=== PATIENT | female | born 1970 | race Caucasian/White ===

== ENCOUNTER 2018-04-22 02:34 | Emergency (ER) | payer SELFPAY ==
[~2018-04-22] VITALS: Ht 157.5 cm; Wt 59.0 kg
[~2018-04-22 02:34] MED LIST: ATIVAN1 MG ORAL; DIPHENHYDRAMINE25 M1 ORAL; EPIPEN 2-P0.3 MG/0.3 IM; IBUPROFEN600 MG ORAL; IBUPROFEN600 MG PO; NORCO 5-325 TA1 EACH ORAL; PEPCID20 MG ORAL; PREDNISONE50 MG ORAL; XANAX0.25 MG ORAL
[2018-04-22 02:41] VITALS: BP 102/60
[2018-04-22] MEDS ORDERED: Methocarbamol 500mg tab ORAL ONE (03:00)
[2018-04-22] MEDS ORDERED: traMADol 50mg tab ORAL ONE (03:00)
[2018-04-22 03:18] LABS: APPEARANCE,URINE CLEAR; BILIRUBIN, URINE NEGATIVE (NEGATIVE); GLUCOSE, URINE (UA) NEGATIVE (NEGATIVE); KETONES,URINE NEGATIVE (NEGATIVE); LEUKOCYTE ESTERASE ,URINE 1+ (NEGATIVE); NITRITE,URINE NEGATIVE (NEGATIVE); PH,URINE 5 (4.5-8.0); PROTEIN,URINE NEGATIVE (NEGATIVE); UROBILINOGEN,URINE NORMAL MG/DL (0.0-1.0)
[2018-04-22 03:24] LABS: COLOR,URINE YELLOW
[2018-04-22 03:44] LABS: BASOPHILS % (AUTO) 1.2 % (0.0-2.0); EOSINOPHILS % (AUTO) 1.6 % (0.0-3.0); HEMATOCRIT 41.4 % (37.0-47.0); HEMOGLOBIN 14.3 G/DL (12.0-16.0); LYMPHOCYTES % (AUTO) 45.7 % (20.0-45.0); MEAN CORPUSCULAR VOLUME 92 FL (80-99); MONOCYTES % (AUTO) 6.6 % (1.0-10.0); NEUTROPHILS % (AUTO) 44.9 % (45.0-75.0); PLATELET COUNT 169 K/UL (150-450); RED BLOOD COUNT 4.53 M/UL (4.20-5.40); RED CELL DISTRIBUTION WIDTH 11.7 % (11.6-14.8); WHITE BLOOD COUNT 8.9 K/UL (4.8-10.8)
[2018-04-22 03:59] LABS: ANION GAP 5 mmol/L (5-15); BLOOD UREA NITROGEN 23 mg/dL (7-18); CALCIUM 8.5 MG/DL (8.5-10.1); CARBON DIOXIDE 27 MMOL/L (21-32); CHLORIDE 104 MMOL/L (98-107); CREATININE 0.8 MG/DL (0.55-1.30); POTASSIUM 3.9 MMOL/L (3.5-5.1); SODIUM 136 MMOL/L (136-145)
[2018-04-22 04:03] LABS: ALANINE AMINOTRANSFERASE 18 U/L (12-78); ALBUMIN 3.7 G/DL (3.4-5.0); ALBUMIN/GLOBULIN RATIO 1.1 (1.0-2.7); ALKALINE PHOSPHATASE 49 U/L (46-116); ASPARTATE AMINO TRANSFERASE 11 U/L (15-37); BILIRUBIN,TOTAL 0.2 MG/DL (0.2-1.0)
--- NOTE | 2018-04-22 04:30 | Emergency Room Report ---
History of Present Illness General Chief Complaint: Back Pain-No Injury Source: Patient Present Illness HPI The patient presents with R upper flank pain. This began yesterday. The pain is 8/10 after taking tylenol 500 mg 2 hours ago. It is constant and somewhat worsened with movement. She denies fever, dysuria, NVD, dyspnea. She had this pain before and was told it may have been caused by muscle spasm. She has chronic back problems with sciatica. This is different pain. She had an epidural yesterday. The lower back is not painful. She denies saddle numbness, incontinence, blood thinners, new numbness or weakness. Some "smoker's cough". No chest pain. No h/o stones. H/O HTN. No headache. Unable to sleep due to pain. Allergies: Coded Allergies: AMOXICILLIN (Unverified Allergy, Severe, 09/29/15) DOXYCYCLINE (Unverified Allergy, Severe, 09/29/15) Patient History Past Medical History: see triage record Social History: Reports: smoking Social History Narrative with family Now: No Reviewed Nursing Documentation: PMH: Agreed; PSxH: Agreed Nursing Documentation-PMH Hx Hypertension: Yes History Of Psychiatric Problem: Yes - depression Review of Systems All Other Systems: negative except mentioned in HPI Physical Exam Vital Signs Date Time Temp Pulse Resp B/P (MAP) Pulse Ox O2 Delivery O2 Flow Rate FiO2 04/22/18 02:38 97.6 78 16 102/60 98 Room Air 97.5 Sp02 EP Interpretation: reviewed, normal General Appearance: well appearing, no apparent distress, GCS 15 Head: normocephalic Eyes: bilateral eye normal inspection, bilateral eye PERRL ENT: moist mucus membranes Neck: supple Respiratory: chest non-tender, lungs clear, normal breath sounds Cardiovascular #1: regular rate, rhythm Cardiovascular #2: 2+ radial (R) Gastrointestinal: normal inspection, normal bowel sounds, non tender, no mass, non-distended Genitourinary: CVA tenderness (R) - upper back Musculoskeletal: back normal - no bone tenderness and FROM with neg SLR, gait/ station normal, normal range of motion, no calf tenderness Neurologic: alert, oriented x3, grossly normal Psychiatric: mood/affect normal Skin: normal inspection, warm/dry Medical Decision Making Diagnostic Impression: Primary Impression: Flank pain Additional Impression: Muscle spasm ER Course Patient presents with R flank pain. DDx: pyelo, UTI, muscle strain/spasm, gall bladder pain, pneumonia, post epidural infection. Evaluation with labs. Treatment with tramadol and robaxin. Depending on labs she might need imaging studies, however, if negative labs, imaging not indicated. (She requested ultrasound.) UA clear. Labs unremarkable. Pain resolved with treatment. Patient stable for outpatient observation and treatment. Laboratory Tests Test 04/22/18 02:40 04/22/18 03:20 04/22/18 03:35 Urine Color Yellow Urine Appearance Clear Urine pH 5 (4.5-8.0) Urine Specific [place] 1.025 (1.005-1.035) Urine Protein Negative (NEGATIVE) Urine Glucose (UA) Negative (NEGATIVE) Urine Ketones Negative (NEGATIVE) Urine Occult Blood Negative (NEGATIVE) Urine Nitrite Negative (NEGATIVE) Urine Bilirubin Negative (NEGATIVE) Urine Urobilinogen Normal MG/DL (0.0-1.0) Urine Leukocyte Esterase 1+ (NEGATIVE) H Urine RBC 0-2 /HPF (0 - 2) Urine WBC 0-2 /HPF (0 - 2) Urine Squamous Epithelial Cells Few /LPF (NONE/OCC) Urine Bacteria None /HPF (NONE) Urine HCG, Qualitative Negative (NEGATIVE) Urine Opiates Screen Negative (NEGATIVE) Urine Barbiturates Screen Negative (NEGATIVE) Phencyclidine (PCP) Screen Negative (NEGATIVE) Urine Amphetamines Screen Negative (NEGATIVE) Urine Benzodiazepines Screen Negative (NEGATIVE) Urine Cocaine Screen Negative (NEGATIVE) Urine Marijuana (THC) Screen Negative (NEGATIVE) White Blood Count 8.9 K/UL (4.8-10.8) Red Blood Count 4.53 M/UL (4.20-5.40) Hemoglobin 14.3 G/DL (12.0-16.0) Hematocrit 41.4 % (37.0-47.0) Mean Corpuscular Volume 92 FL (80-99) Mean Corpuscular Hemoglobin 31.7 PG (27.0-31.0) H Mean Corpuscular Hemoglobin Concent 34.6 G/DL (32.0-36.0) Red Cell Distribution Width 11.7 % (11.6-14.8) Platelet Count 169 K/UL (150-450) Mean Platelet Volume 11.4 FL (6.5-10.1) H Neutrophils (%) (Auto) 44.9 % (45.0-75.0) L Lymphocytes (%) (Auto) 45.7 % (20.0-45.0) H Monocytes (%) (Auto) 6.6 % (1.0-10.0) Eosinophils (%) (Auto) 1.6 % (0.0-3.0) Basophils (%) (Auto) 1.2 % (0.0-2.0) Sodium Level 136 MMOL/L (136-145) Potassium Level 3.9 MMOL/L (3.5-5.1) Chloride Level 104 MMOL/L (98-107) Carbon Dioxide Level 27 MMOL/L (21-32) Anion Gap 5 mmol/L (5-15) Blood Urea Nitrogen 23 mg/dL (7-18) H Creatinine 0.8 MG/DL (0.55-1.30) Estimate Glomerular Filtration Rate > 60 mL/min (>60) Glucose Level 105 MG/DL (74-106) Calcium Level 8.5 MG/DL (8.5-10.1) Total Bilirubin 0.2 MG/DL (0.2-1.0) Aspartate Amino Transferase (AST) 11 U/L (15-37) L Alanine Aminotransferase (ALT) 18 U/L (12-78) Alkaline Phosphatase 49 U/L (46-116) Total Protein 7.0 G/DL (6.4-8.2) Albumin 3.7 G/DL (3.4-5.0) Globulin 3.3 g/dL Albumin/Globulin Ratio 1.1 (1.0-2.7) Lipase 153 U/L (73-393) Last Vital Signs Date Time Temp Pulse Resp B/P (MAP) Pulse Ox O2 Delivery O2 Flow Rate FiO2 04/22/18 04:47 97.2 62 12 104/58 99 Room Air 97.2 Status: improved Disposition: HOME, SELF-CARE Condition: Improved Scripts Tramadol Hcl* (ULTRAM*) 50 Mg Tablet 50 MG ORAL Q6H PRN for For Pain, #10 TAB 0 Refills Prov: Arturo Epperson M.D. 04/22/18 Methocarbamol* (ROBAXIN*) 500 Mg Tablet 500 MG PO TID, #10 TAB 0 Refills Prov: Arturo Epperson M.D. 04/22/18 Ibuprofen* (MOTRIN*) 600 Mg Tablet 600 MG ORAL Q6H PRN for For Pain, #20 TAB Prov: Arturo Epperson M.D. 04/22/18 Referrals: NON PHYSICIAN (PCP) Arturo Epperson M.D. Apr 22, 2018 04:30
[2018-04-22] MEDS ORDERED: ROBAXIN500 MG PO (04:33)
[2018-04-22] MEDS ORDERED: TRAMADOL HCL50 MG ORAL (04:33)
[2018-04-22] MEDS ORDERED: IBUPROFEN600 MG ORAL (04:33)
[2018-04-22 04:41] VITALS: BP 104/58
[2018-04-22 04:47] VITALS: BP 104/58
== END 2018-04-22 04:47 | disposition home or self-care (01) ==
LOC: EMR 02:50
DX: R10.9 Unspecified abdominal pain (principal); M62.838 Other muscle spasm; I10 Essential (primary) hypertension; F32.9 Major depressive disorder, single episode, unspecified; Z88.0 Allergy status to penicillin
CPT/HCPCS: 36415; 80053; 80307; 81003; 81025; 83690; 85025; 99284

== ENCOUNTER 2018-08-07 15:44 | Emergency (ER) | payer SELFPAY ==
[~2018-08-07] VITALS: Ht 162.6 cm; Wt 58.1 kg
[~2018-08-07 15:44] MED LIST changes: +ROBAXIN500 MG PO; +TRAMADOL HCL50 MG ORAL
[2018-08-07 15:55] VITALS: BP 99/65
--- NOTE | 2018-08-07 16:29 | Emergency Room Report ---
History of Present Illness General Chief Complaint: Pain Source: Patient Present Illness HPI Patient had fillers injected by her eyes and in her upper lip yesterday by her plastic surgeon. She's had swelling. She placed ice on one time yesterday. She's not taking medication for pain. She denies any fevers or chills. There' s no change in vision. Still with swelling under eyes. Pain rated 6/10, pressure/aching, constant. No headache. Someone told her she should use arnica. No other somatic complaints. LNMP 2 days ago. H/O HTN. Tetanus unknown. Allergies: Coded Allergies: AMOXICILLIN (Unverified Allergy, Severe, 09/29/15) DOXYCYCLINE (Unverified Allergy, Severe, 09/29/15) Patient History Past Medical History: see triage record Past Surgical History: other - plastic surgery Social History: Reports: smoking Social History Narrative with her daughter Last Menstrual Period: 2 days ago Reviewed Nursing Documentation: PMH: Agreed; PSxH: Agreed Nursing Documentation-PMH Past Medical History: No History, Except For Hx Hypertension: Yes History Of Psychiatric Problem: Yes - depression Review of Systems Constitutional: Denies: fever Eye: Reports: see HPI ENT: Denies: nose congestion, throat pain, throat swelling, mouth pain, nasal discharge Gastrointestinal: Denies: nausea Genitourinary: Reports: see HPI Musculoskeletal: Denies: joint pain Skin: Reports: see HPI Neurological: Reports: see HPI Hematologic/Lymphatic: Denies: blood clots, easy bleeding, easy bruising Physical Exam Vital Signs Date Time Temp Pulse Resp B/P (MAP) Pulse Ox O2 Delivery O2 Flow Rate FiO2 08/07/18 15:54 98.0 73 14 99/65 96 Room Air 98.1 Sp02 EP Interpretation: reviewed, normal General Appearance: well appearing, no apparent distress, GCS 15 Head: normocephalic, atraumatic Eyes: bilateral eye PERRL, bilateral eye EOMI, bilateral eye other - swelling under both eyes ENT: hearing grossly normal, normal voice Neck: full range of motion, supple Respiratory: no respiratory distress, speaking full sentences Cardiovascular #1: regular rate, rhythm Gastrointestinal: normal inspection Musculoskeletal: gait/station normal Neurologic: alert, oriented x3, normal gait, grossly normal Psychiatric: mood/affect normal Skin: other - no erythema at sites of injection Medical Decision Making Diagnostic Impression: Primary Impression: Facial swelling ER Course Patient presents with periorbital swelling post filler injections yesterday. DDx; cellulitis, local reaction, allergic reaction. Skin not erythematous and no itching. No evidence of infection at this time. Vision not affected. Antibiotics not indicated. Focus on analgesia and local care. Tetanus not indicated as office procedure. Discussed treatment plan with patient. Patient stable for outpatient observation and treatment. Last Vital Signs Date Time Temp Pulse Resp B/P (MAP) Pulse Ox O2 Delivery O2 Flow Rate FiO2 08/07/18 16:55 98.1 73 14 99/65 96 Room Air 98.1 Status: improved Disposition: HOME, SELF-CARE Condition: Improved Scripts Tramadol Hcl* (ULTRAM*) 50 Mg Tablet 50 MG ORAL Q6H PRN for For Pain, #6 TAB 0 Refills Prov: Arturo Epperson M.D. 08/07/18 Ibuprofen* (MOTRIN*) 600 Mg Tablet 600 MG ORAL Q6H PRN for For Pain, #12 TAB Prov: Arturo Epperson M.D. 08/07/18 Arturo Epperson M.D. Aug 07, 2018 16:28
[2018-08-07] MEDS ORDERED: TRAMADOL HCL50 MG ORAL (16:31)
[2018-08-07] MEDS ORDERED: IBUPROFEN600 MG ORAL (16:31)
[2018-08-07 16:55] VITALS: BP 99/65
== END 2018-08-07 16:55 | disposition home or self-care (01) ==
LOC: EMR 16:20
DX: R22.0 Localized swelling, mass and lump, head (principal)
CPT/HCPCS: 99283

== ENCOUNTER 2018-10-16 22:13 | Emergency (ER) | payer MEDICAID ==
[~2018-10-16] VITALS: Ht 162.6 cm; Wt 63.5 kg
[2018-10-16] MEDS ORDERED: CLONAZEPAM1 MG PO (22:27)
[2018-10-16 22:32] VITALS: BP 105/69
[2018-10-16] MEDS ORDERED: Morphine Sulfate 4mg/ml Inj (IV/IM USE ONLY) IVP ONE (23:00)
[2018-10-16 23:12] LABS: APPEARANCE,URINE CLEAR; BILIRUBIN, URINE NEGATIVE (NEGATIVE); COLOR,URINE PALE YELLOW; GLUCOSE, URINE (UA) NEGATIVE (NEGATIVE); KETONES,URINE NEGATIVE (NEGATIVE); LEUKOCYTE ESTERASE ,URINE 1+ (NEGATIVE); NITRITE,URINE NEGATIVE (NEGATIVE); PH,URINE 5 (4.5-8.0); PROTEIN,URINE 2+ (NEGATIVE); UROBILINOGEN,URINE NORMAL MG/DL (0.0-1.0)
[2018-10-16 23:13] LABS: BASOPHILS % (AUTO) 1.7 % (0.0-2.0); EOSINOPHILS % (AUTO) 1.6 % (0.0-3.0); HEMATOCRIT 38.7 % (37.0-47.0); HEMOGLOBIN 13.2 G/DL (12.0-16.0); LYMPHOCYTES % (AUTO) 47.3 % (20.0-45.0); MEAN CORPUSCULAR VOLUME 91 FL (80-99); MONOCYTES % (AUTO) 6.2 % (1.0-10.0); NEUTROPHILS % (AUTO) 43.2 % (45.0-75.0); PLATELET COUNT 231 K/UL (150-450); RED BLOOD COUNT 4.24 M/UL (4.20-5.40); RED CELL DISTRIBUTION WIDTH 11.8 % (11.6-14.8); WHITE BLOOD COUNT 8.1 K/UL (4.8-10.8)
[2018-10-16 23:21] LABS: INR 0.9 (0.9-1.1)
[2018-10-16 23:22] LABS: ANION GAP 9 mmol/L (5-15); BLOOD UREA NITROGEN 10 mg/dL (7-18); CALCIUM 8.6 MG/DL (8.5-10.1); CARBON DIOXIDE 25 MMOL/L (21-32); CHLORIDE 105 MMOL/L (98-107); CREATININE 0.9 MG/DL (0.55-1.30); POTASSIUM 4.7 MMOL/L (3.5-5.1); SODIUM 139 MMOL/L (136-145)
[2018-10-16 23:26] LABS: ALANINE AMINOTRANSFERASE 18 U/L (12-78); ALBUMIN 3.6 G/DL (3.4-5.0); ALBUMIN/GLOBULIN RATIO 0.9 (1.0-2.7); ALKALINE PHOSPHATASE 60 U/L (46-116); ASPARTATE AMINO TRANSFERASE 38 U/L (15-37); BILIRUBIN,TOTAL 0.3 MG/DL (0.2-1.0)
[2018-10-16 23:57] VITALS: BP 105/69
[2018-10-17] MEDS ORDERED: ACETAMINOPHEN-1 EAC1 ORAL (00:06)
--- NOTE | 2018-10-17 04:51 | Emergency Room Report ---
History of Present Illness General Chief Complaint: Vaginal Source: Patient Present Illness HPI 48-year-old female presents ED for evaluation. Complaining of lower abdominal pain with vaginal bleeding. Bleeding started with her period, but has persisted for 16 days now. Heavier than usual. Feels lightheaded and weak. Pain is cramping, 7 out of 10, nonradiating. Is not sure if she is . No other aggravating relieving factors. Denies any other associated symptoms Allergies: Coded Allergies: AMOXICILLIN (Unverified Allergy, Severe, 09/29/15) DOXYCYCLINE (Unverified Allergy, Severe, 09/29/15) Patient History Past Medical History: HTN Past Surgical History: none Pertinent Family History: none Social History: Denies: smoking, alcohol use, drug use Last Menstrual Period: last 16 days Now: No Immunizations: UTD Reviewed Nursing Documentation: PMH: Agreed; PSxH: Agreed Nursing Documentation-PMH Past Medical History: No Stated History Hx Hypertension: Yes Review of Systems All Other Systems: negative except mentioned in HPI Physical Exam Vital Signs Date Time Temp Pulse Resp B/P (MAP) Pulse Ox O2 Delivery O2 Flow Rate FiO2 10/16/18 22:20 97.7 66 18 105/69 99 Room Air Sp02 EP Interpretation: reviewed, normal General Appearance: no apparent distress, alert, GCS 15, non-toxic Head: normocephalic, atraumatic Eyes: bilateral eye normal inspection, bilateral eye PERRL ENT: hearing grossly normal, normal pharynx, no angioedema, normal voice Neck: full range of motion, supple/symm/no masses Respiratory: chest non-tender, lungs clear, normal breath sounds, speaking full sentences Cardiovascular #1: regular rate, rhythm, no edema Cardiovascular #2: 2+ carotid (R), 2+ carotid (L), 2+ radial (R), 2+ radial (L) , 2+ dorsalis pedis (R), 2+ dorsalis pedis (L) Gastrointestinal: normal bowel sounds, non tender, soft, non-distended, no guarding, no rebound Rectal: deferred Genitourinary: normal inspection, no CVA tenderness Musculoskeletal: back normal, gait/station normal, normal range of motion, non- tender Neurologic: alert, oriented x3, responsive, motor strength/tone normal, sensory intact, speech normal Psychiatric: judgement/insight normal, memory normal, mood/affect normal, no suicidal/homicidal ideation Reflexes: 3+ bicep (R), 3+ bicep (L), 3+ tricep (R), 3+ tricep (L), 3+ knee (R) , 3+ knee (L) Skin: normal color, no rash, warm/dry, well hydrated Lymphatic: no adenopathy Medical Decision Making Diagnostic Impression: Primary Impression: Fibroids Qualified Codes: D25.9 - Leiomyoma of uterus, unspecified ER Course Hospital Course 48-year-old female presents to ED complaining of vaginal bleed > 2 weeks Differential diagnoses include: gastrits, gastroenterits, ectopic , ovarian torsion/cyst, UTI Clinical course Patient placed on stretcher in ED. After initial history and physical I ordered labs, IV fluids and pain meds and pelvic ultrasound. Labs-no leukocytosis, hb/hct stable, electrolytes okay, beta hCG negative, UA negative Pelvic ultrasound- fibroids Discussed findings with patient. Safe for discharge or close outpatient follow- up. Patient states she'll follow-up with her [employer] Diagnosis - fibroids Stable and discharged to home with Rx Tylenol #3. Followup with PMD/[employer]. Return to ED if symptoms recur or worsen Labs Test 10/16/18 22:50 White Blood Count 8.1 K/UL (4.8-10.8) Red Blood Count 4.24 M/UL (4.20-5.40) Hemoglobin 13.2 G/DL (12.0-16.0) Hematocrit 38.7 % (37.0-47.0) Mean Corpuscular Volume 91 FL (80-99) Mean Corpuscular Hemoglobin 31.1 PG (27.0-31.0) Mean Corpuscular Hemoglobin Concent 34.2 G/DL (32.0-36.0) Red Cell Distribution Width 11.8 % (11.6-14.8) Platelet Count 231 K/UL (150-450) Mean Platelet Volume 9.5 FL (6.5-10.1) Neutrophils (%) (Auto) 43.2 % (45.0-75.0) Lymphocytes (%) (Auto) 47.3 % (20.0-45.0) Monocytes (%) (Auto) 6.2 % (1.0-10.0) Eosinophils (%) (Auto) 1.6 % (0.0-3.0) Basophils (%) (Auto) 1.7 % (0.0-2.0) Prothrombin Time 10.0 SEC (9.30-11.50) Prothromb Time International Ratio 0.9 (0.9-1.1) Activated Partial Thromboplast Time 25 SEC (23-33) Urine Color Pale yellow Urine Appearance Clear Urine pH 5 (4.5-8.0) Urine Specific [place] 1.010 (1.005-1.035) Urine Protein 2+ (NEGATIVE) Urine Glucose (UA) Negative (NEGATIVE) Urine Ketones Negative (NEGATIVE) Urine Blood 5+ (NEGATIVE) Urine Nitrite Negative (NEGATIVE) Urine Bilirubin Negative (NEGATIVE) Urine Urobilinogen Normal MG/DL (0.0-1.0) Urine Leukocyte Esterase 1+ (NEGATIVE) Urine RBC 15-20 /HPF (0 - 2) Urine WBC 2-4 /HPF (0 - 2) Urine Squamous Epithelial Cells Few /LPF (NONE/OCC) Urine Bacteria Few /HPF (NONE) Urine HCG, Qualitative Negative (NEGATIVE) Sodium Level 139 MMOL/L (136-145) Potassium Level 4.7 MMOL/L (3.5-5.1) Chloride Level 105 MMOL/L (98-107) Carbon Dioxide Level 25 MMOL/L (21-32) Anion Gap 9 mmol/L (5-15) Blood Urea Nitrogen 10 mg/dL (7-18) Creatinine 0.9 MG/DL (0.55-1.30) Estimat Glomerular Filtration Rate > 60 mL/min (>60) Glucose Level 101 MG/DL (74-106) Calcium Level 8.6 MG/DL (8.5-10.1) Total Bilirubin 0.3 MG/DL (0.2-1.0) Aspartate Amino Transf (AST/SGOT) 38 U/L (15-37) Alanine Aminotransferase (ALT/SGPT) 18 U/L (12-78) Alkaline Phosphatase 60 U/L (46-116) Total Protein 7.5 G/DL (6.4-8.2) Albumin 3.6 G/DL (3.4-5.0) Globulin 3.9 g/dL Albumin/Globulin Ratio 0.9 (1.0-2.7) Lipase 199 U/L (73-393) Human Chorionic Gonadotropin, Quant < 1 mIU/mL (1-6) CT/MRI/US Diagnostic Results CT/MRI/US Diagnostic Results : Imaging Test Ordered: Pelvic US Impression fibroids Last Vital Signs Date Time Temp Pulse Resp B/P (MAP) Pulse Ox O2 Delivery O2 Flow Rate FiO2 10/16/18 23:57 97.7 66 18 105/69 99 Room Air Status: improved Disposition: HOME, SELF-CARE Condition: Stable Scripts Acetaminophen With Codeine (T#3) (TYLENOL #3 TAB*) Y Tab 1 TAB ORAL Q8H PRN for For Pain for 3 Days, TAB Prov: Shantanu Page MD 10/17/18 Patient Instructions: Abdominal or Pelvic Ultrasound, [id number] Shantanu Page MD Oct 17, 2018 04:51
--- NOTE | 2018-10-18 16:06 | Diagnostic Imaging Report ---
Indication: Pelvic pain, bleeding for 16 days negative test Technique: Transabdominal and transvaginal images. Doppler interrogation of the right ovary Comparison: none Findings: Only limited endovaginal scanning performed. Uterus measures 7 cm length by 5.4 cm AP. Multiple small myometrial fibroids are noted. There is a small cervical nabothian cyst. No free cul-de-sac fluid The endometrium measures 5 mm thick. The right ovary measures 2.7 cm length, demonstrates normal flow on Doppler imaging. The left ovary cannot be visualized Impression: Limited exam, as described Multiple small uterine fibroids Normal right ovary
== END 2018-10-17 00:13 | disposition home or self-care (01) ==
LOC: EMR 22:39
DX: D25.9 Leiomyoma of uterus, unspecified (principal); Z88.8 Allergy status to other drugs, medicaments and biological substances; I10 Essential (primary) hypertension
CPT/HCPCS: 36415; 76830; 76856; 80053; 81003; 81025; 83690; 84702; 85025; 85610; 85730; 86850; 86900; 86901; 96374; 99284; J2270

== ENCOUNTER 2019-02-17 22:56 | Emergency (ER) | payer MEDICAID ==
[~2019-02-17] VITALS: Ht 162.6 cm; Wt 63.5 kg
[~2019-02-17 22:56] MED LIST changes: +ACETAMINOPHEN-1 EAC1 ORAL; +CLONAZEPAM1 MG PO
[2019-02-17 23:15] VITALS: BP 119/82
--- NOTE | 2019-02-17 23:15 | NUR ---
ER Nurse Note: Pt came from home c/o generilized pain, 9/10 pain. Pt complained about head pain, back pain, and arm pain. Pt stated she has a hx of a herinated disk and gotten [place]. Pt a&ox4, VSS, no signs of distress. ERMD at bedside and ordered pain meds. [facility]
[2019-02-17] MEDS: Ketorolac 60mg Inj IM ONE (23:43)
[2019-02-17] MEDS ORDERED: TRAMADOL HCL50 MG ORAL (23:53)
--- NOTE | 2019-02-17 23:53 | Emergency Room Report ---
History of Present Illness General Chief Complaint: Dizziness Source: Patient Present Illness HPI Is a 48-year-old female with history anxiety. She presents with chief complaint of throat pain and dizziness and back pain. Onset today. She said pain was sharp. Occur few hours ago. Worse with swallowing. Does have some congestion. She said she felt dizzy like she did not pass out. Also with right ear pain. And then she developed lower back pain. Pain is 8 out of 10. No nausea no vomiting. No other complaint. Allergies: Coded Allergies: AMOXICILLIN (Unverified Allergy, Severe, 09/29/15) DOXYCYCLINE (Unverified Allergy, Severe, 09/29/15) Patient History Past Medical History: see triage record, old chart reviewed Past Surgical History: none Pertinent Family History: none Social History: Denies: smoking Last Menstrual Period: 02/07/19 Now: No Immunizations: other Reviewed Nursing Documentation: PMH: Agreed; PSxH: Agreed Nursing Documentation-PMH Past Medical History: No History, Except For Hx Hypertension: Yes Review of Systems Eye: Denies: eye pain, blurred vision ENT: Reports: throat pain; Denies: ear pain, nose congestion, throat swelling Respiratory: Reports: cough; Denies: shortness of breath Cardiovascular: Denies: chest pain, palpitations Gastrointestinal: Denies: abdominal pain, diarrhea, nausea, vomiting Musculoskeletal: Reports: back pain; Denies: joint pain Skin: Denies: rash Neurological: Denies: headache, numbness Endocrine: Denies: increased thirst, increased urine Hematologic/Lymphatic: Denies: easy bruising All Other Systems: negative except mentioned in HPI Physical Exam Vital Signs Date Time Temp Pulse Resp B/P (MAP) Pulse Ox O2 Delivery O2 Flow Rate FiO2 02/17/19 22:59 99.0 66 14 119/82 95 Room Air vitals unremarkable Sp02 EP Interpretation: reviewed, normal General Appearance: well appearing, no apparent distress, alert Head: normocephalic, atraumatic Eyes: bilateral eye PERRL, bilateral eye EOMI ENT: normal pharynx, pharyngeal erythema - Mild Neck: full range of motion, supple, no meningismus Respiratory: chest non-tender, lungs clear, normal breath sounds Cardiovascular #1: regular rate, rhythm, no murmur Gastrointestinal: normal bowel sounds, non tender, no mass, no organomegaly, no bruit, non-distended Musculoskeletal: back normal, gait/station normal, normal range of motion Psychiatric: mood/affect normal Skin: warm/dry Medical Decision Making Diagnostic Impression: Primary Impression: Pharyngitis, acute Qualified Codes: J02.9 - Acute pharyngitis, unspecified Additional Impressions: Dizziness Back pain Qualified Codes: M54.5 - Low back pain ER Course Patient presents with sore throat. I see no evidence any strep throat. No evidence of peritonsillar abscess or retropharyngeal abscess or Enrique angina. She is otherwise stable. Explained to patient that antibiotics does not treat this. We'll discharge her with symptomatic treatment. Last Vital Signs Date Time Temp Pulse Resp B/P (MAP) Pulse Ox O2 Delivery O2 Flow Rate FiO2 02/17/19 22:59 99.0 66 14 119/82 95 Room Air Status: improved Disposition: HOME, SELF-CARE Condition: Stable Scripts Tramadol Hcl* (ULTRAM*) 50 Mg Tablet 50 MG ORAL Q6H PRN for For Pain, #10 TAB 0 Refills Prov: Sarath Trujillo MD 02/17/19 Referrals: NOT CHOSEN IPA/,REFERRING (PCP) Additional Instructions: Increase fluids. Salt water gargle. What you have is a viral infection. Antibiotics does not treat this. Follow-up with your doctor in 7 days. Return if symptom worsen. Sarath Trujillo MD Feb 17, 2019 23:53
[2019-02-18 00:15] VITALS: BP 119/82
--- NOTE | 2019-02-18 00:15 | NUR ---
ER Nurse Note: Pt seen, treated, medicially cleared for discharge by ERMD. Discharge instructions and prescriptions given with repeat verbalization by pt. Instructed pt follow up with primary care physican within one week. Pt a&ox4, VSS, no signs of distress. Pt left with steady gait, no s/s of pain and nausea after meds. ID band removed. Pt left with own transportation with all belongings.
== END 2019-02-18 00:15 | disposition home or self-care (01) ==
LOC: EMR 23:22
DX: J02.9 Acute pharyngitis, unspecified (principal); R42 Dizziness and giddiness; M54.5 Low back pain; Z88.0 Allergy status to penicillin; I10 Essential (primary) hypertension
CPT/HCPCS: 96372; 99283

== ENCOUNTER → 2020-08-10 | Emergency (ER) | payer MEDICAID ==
[~2020-08-10] VITALS: Ht 162.6 cm; Wt 72.6 kg
[~2020-08-10] MED LIST changes: +DiphenhydrAMINE 50mg/ml Inj IVP ONE; +Ketorolac 30mg Inj IV ONE; +Metoclopramide 10mg/2ml Inj IVP ONE
--- NOTE | 2020-08-10 16:29 | NUR ---
ED Nurse Note: pt. unavailable upon triage
[2020-08-10 16:36] VITALS: BP 117/79
--- NOTE | 2020-08-10 16:46 | NUR ---
ED Nurse Note: Patient from [facility] and walked in due to headache, sore throat, loss of voice and weakness x 2 days. No reports of fever or vomiting. AAO x4, ambulatory with no respiratory distress.
--- NOTE | 2020-08-10 17:10 | Emergency Room Report ---
History of Present Illness General Chief Complaint: Headache Source: Patient Present Illness HPI Disclaimer: Please note that this report is being documented using DRAGON technology. This can lead to erroneous entry secondary to incorrect interpretation by the dictating instrument. HPI: 50-year-old female presents for evaluation of headache, weakness, myalgias, decreased appetite. Symptoms present approximately 4 days. Daughter and is similar symptoms at home. Over the past 4 days she has decreased appetite, epigastric discomfort, productive cough but denies fever or chills. She reports sore throat and frontal headache. Feels globally weak. Reports intermittent myalgias. Has been using high-dose Tylenol, drinking tea and using multivitamins. No recent COVID test. Did not get a flu shot this year. Pneumovax is up-to-date. Denies changes in vision, loss of consciousness, near syncope, palpitations, chest pain. PMH: Migraines PSH: Reviewed Allergies: Amoxicillin and doxycycline Social Hx: 1 pack a day smoker Allergies: Coded Allergies: AMOXICILLIN (Unverified Allergy, Severe, 09/29/15) DOXYCYCLINE (Unverified Allergy, Severe, 09/29/15) COVID-19 Screening Contact w/high risk pt: Yes Experienced COVID-19 symptoms?: Yes COVID-19 Screening: Negative COVID-19 COVID-19 Testing Source: clinic Patient History Now: No Nursing Documentation-PMH Hx Hypertension: Yes Review of Systems All Other Systems: negative except mentioned in HPI Physical Exam Vital Signs Date Time Temp Pulse Resp B/P (MAP) Pulse Ox O2 Delivery O2 Flow Rate FiO2 08/10/20 16:36 98.6 61 19 117/79 98 Room Air General: Awake and alert, no acute distress HEENT: NC/AT. EOMI. PERRLA. No ocular entrapment. No proptosis, no lid edema. No nystagmus. Cardiovascular: RRR. S1 and S2 normal. No murmur appreciated Resp: Normal work of breathing. No cough during exam. No wheezing or crackles appreciated Abdomen: Abdomen is soft, nondistended. Nontender Skin: Intact. No abrasions, laceration or rash over the exposed skin MSK: Normal tone and bulk. Moving all extremities. No obvious deformity. Neuro: Awake and alert. Mentating appropriately. Medical Decision Making Diagnostic Impression: Primary Impression: Viral syndrome Additional Impression: Headache ER Course 50-year-old female presents for evaluation of headache, decreased appetite, cough, sore throat and epigastric discomfort. Differential includes is not limited to viral syndrome, pneumonia, bronchitis, generalized headache, migraine headache, tension headache, dehydration, electrolyte abnormality, ACS to name a few. She arrives with stable vital signs, afebrile saturating 100% on room air. Labs have returned within normal limits including a negative COVID-19, negative troponin. No signs of severe dehydration. The patient was treated with IV flui ds, Reglan, Benadryl and Toradol. Headache is nearly resolved she reports feeling much better. I suspect she has a viral syndrome which should resolve in the next few days. She is overall well-appearing and stable for outpatient follow-up. Family is here to take her home. She will follow-up with her PMD and instructed to return to the emergency department new or worsening symptoms. She understands and agrees with this treatment plan. Laboratory Tests Test 08/10/20 17:30 White Blood Count 8.2 K/UL (4.8-10.8) Red Blood Count 4.48 M/UL (4.20-5.40) Hemoglobin 14.1 G/DL (12.0-16.0) Hematocrit 41.2 % (37.0-47.0) Mean Corpuscular Volume 92 FL (80-99) Mean Corpuscular Hemoglobin 31.5 PG (27.0-31.0) H Mean Corpuscular Hemoglobin Concent 34.3 G/DL (32.0-36.0) Red Cell Distribution Width 13.0 % (11.6-14.8) Platelet Count 205 K/UL (150-450) Mean Platelet Volume 11.3 FL (6.5-10.1) H Neutrophils (%) (Auto) 52.7 % (45.0-75.0) Lymphocytes (%) (Auto) 40.5 % (20.0-45.0) Monocytes (%) (Auto) 4.8 % (1.0-10.0) Eosinophils (%) (Auto) 0.6 % (0.0-3.0) Basophils (%) (Auto) 1.4 % (0.0-2.0) Sodium Level 136 MMOL/L (136-145) Potassium Level 4.0 MMOL/L (3.5-5.1) Chloride Level 103 MMOL/L (98-107) Carbon Dioxide Level 31 MMOL/L (21-32) Blood Urea Nitrogen 8 mg/dL (7-18) Creatinine 0.9 MG/DL (0.55-1.30) Estimated Glomerular Filtration Rate > 60 mL/min (>60) Glucose Level 95 MG/DL (74-106) Calcium Level 9.1 MG/DL (8.5-10.1) Total Bilirubin 0.4 MG/DL (0.2-1.0) Aspartate Amino Transferase (AST) 13 U/L (15-37) L Alanine Aminotransferase (ALT) 6 U/L (12-78) L Alkaline Phosphatase 61 U/L (46-116) Troponin I 0.000 ng/mL (0.000-0.056) Total Protein 6.9 G/DL (6.4-8.2) Albumin 4.0 G/DL (3.4-5.0) Globulin 2.9 g/dL Albumin/Globulin Ratio 1.4 (1.0-2.7) Microbiology Date/Time Source Procedure Growth Status 08/10/20 17:30 Nasopharynx SARS-CoV-2 RdRp Gene Assay - Final Complete EKG Diagnostic Results Troponin ordered: Yes When was troponin ordered?: Aug 10, 2020 EKG Time: 17:15 Rate: bradycardiac Rhythm: NSR ST Segments: no acute changes Other Impression Sinus rhythm, bradycardic rate. Normal axis, normal intervals no ST segment changes. Rhythm Strip Diag. Results Rhythm Strip Time: 17:15 EP Interpretation: yes Rate: 56 Rhythm: NSR, no PVC's, no ectopy Chest X-Ray Diagnostic Results Chest X-Ray Diagnostic Results : Chest X-Ray Ordered: Yes # of Views/Limited/Complete: 1 View Indication: Other - Weakness, cough Interpretation: no consolidation, no effusion, no pneumothorax, no acute cardiopulmonary disease Impression: No acute disease Electronically Signed by: Electronically signed by Dr. Marquez Serna Last Vital Signs Date Time Temp Pulse Resp B/P (MAP) Pulse Ox O2 Delivery O2 Flow Rate FiO2 08/10/20 16:36 98.6 61 19 117/79 (92) 98 Room Air Disposition: HOME, SELF-CARE Condition: Improved Marquez Serna MD Aug 10, 2020 17:10
--- NOTE | 2020-08-10 17:37 | Diagnostic Imaging Report ---
EXAM: XR Chest, 1 View CLINICAL HISTORY: COUGH TECHNIQUE: Frontal view of the chest. COMPARISON: No relevant prior studies available. FINDINGS: Lungs: Possible mild pulmonary vascular congestion/edema. No focal consolidation. Pleural space: Unremarkable. No pneumothorax. Heart: Unremarkable. No cardiomegaly. Mediastinum: Unremarkable. Bones/joints: Unremarkable. IMPRESSION: Possible mild pulmonary vascular congestion/edema. No focal consolidation.
[2020-08-10 18:04] LABS: ALANINE AMINOTRANSFERASE 6 U/L (12-78); ALBUMIN/GLOBULIN RATIO 1.4 (1.0-2.7); ALKALINE PHOSPHATASE 61 U/L (46-116); ASPARTATE AMINO TRANSFERASE 13 U/L (15-37); BILIRUBIN,TOTAL 0.4 MG/DL (0.2-1.0); BLOOD UREA NITROGEN 8 mg/dL (7-18); CALCIUM 9.1 MG/DL (8.5-10.1); CARBON DIOXIDE 31 MMOL/L (21-32); CHLORIDE 103 MMOL/L (98-107); CREATININE 0.9 MG/DL (0.55-1.30); SODIUM 136 MMOL/L (136-145)
[2020-08-10 18:06] LABS: BASOPHILS % (AUTO) 1.4 % (0.0-2.0); EOSINOPHILS % (AUTO) 0.6 % (0.0-3.0); HEMATOCRIT 41.2 % (37.0-47.0); HEMOGLOBIN 14.1 G/DL (12.0-16.0); LYMPHOCYTES % (AUTO) 40.5 % (20.0-45.0); MEAN CORPUSCULAR VOLUME 92 FL (80-99); MONOCYTES % (AUTO) 4.8 % (1.0-10.0); NEUTROPHILS % (AUTO) 52.7 % (45.0-75.0); PLATELET COUNT 205 K/UL (150-450); RED BLOOD COUNT 4.48 M/UL (4.20-5.40); WHITE BLOOD COUNT 8.2 K/UL (4.8-10.8)
--- NOTE | 2020-08-10 18:56 | NUR ---
HAND-OFF: Report given to Deb LAMAR.
--- NOTE | 2020-08-10 19:00 | NUR ---
ED Nurse Note: Report received from WILLADR Ge.
[2020-08-10 19:05] VITALS: BP 110/59
--- NOTE | 2020-08-10 19:05 | NUR ---
ER DISCHARGE NOTE: Patient is cleared to be discharged per ERMD, pt is aox4, on room air, with stable vital signs. pt was given dc instructions, pt was able to verbalize understanding, pt id band and iv site removed without complications. pt is able to ambulate with steady gait. pt took all belongings.
--- NOTE | 2020-08-13 06:20 | Cardiology Report ---
APPROVED REPORT EKG Measurement Heart [id number] <Conclusion> Sinus bradycardia Otherwise normal ECG
== END | disposition home or self-care (01) ==
LOC: EMR 17:04
DX: B34.9 Viral infection, unspecified (principal); R51.9 Headache, unspecified; I10 Essential (primary) hypertension; Z88.1 Allergy status to other antibiotic agents; M79.10 Myalgia, unspecified site; R00.1 Bradycardia, unspecified
CPT/HCPCS: 36415; 71045; 80053; 84484; 85025; 93005; 96361; 96374; 96375; J1200; J1885; J2765; J7030; U0002; Z7502; 99284